=== PATIENT | female | born 1965 | race Caucasian/White ===

== ENCOUNTER → 2017-10-09 10:06 | Outpatient (CLI) | payer BC, SELFPAY ==
[2017-10-09 11:23] LABS: Absolute Basophil Count 0.04 k/cumm (0.0-0.2); Absolute Eosinophil Count 0.31 k/cumm (0.0-0.7); Absolute Monocyte Count 0.45 k/cumm (0.11-0.7); Absolute Neutrophil Count 2.69 k/cumm (1.2-6.7); Basophils % 0.7; Eosinophils % 5.8; HCT 43.5 % (36.0-46.0); HGB 14.4 g/dL (12.0-15.5); Lymphocytes % 35.3; Mean Corp. HGB Concentration 33.1 g/dL (32.0-36.0); Mean Corpuscular Hemoglobin 31.2 pg (27.0-33.0); Mean Corpuscular Volume 94.4 fL (80-95); Mean Platelet Volume 10.6 fL (8.0-11.0); Monocytes % 8.3; Neutrophils % 49.9; Platelet Count 241 x1000/uL (130-400); RBC 4.61 m/cumm (4.00-5.20); RBC Distribution Width 13.5 % (11.7-14.6); White Blood Cell Count 5.39 k/cumm (4.4-10.8)
[2017-10-09 12:16] LABS: TSH (W/Ref FT4) 2.18 uIU/mL (0.358-3.74)
[2017-10-09 16:50] LABS: Vitamin D 25 Total 41.6 ng/ml (30-100)
== END ==
PROVIDERS: PCP Internal Medicine; Visit Provider Internal Medicine
DX: D64.9 Anemia, unspecified (principal); E55.9 Vitamin D deficiency, unspecified; N94.6 Dysmenorrhea, unspecified; J45.909 Unspecified asthma, uncomplicated; R31.29 Other microscopic hematuria
CPT/HCPCS: 36415; 82306; 84443; 85025

== ENCOUNTER 2018-02-08 00:18 | Outpatient (CLI) | payer BC, SELFPAY ==
--- NOTE | 2018-02-08 11:40 | DI.MAMMO_ITS ---
SYMPTOM/DIAGNOSIS: SCREENING, Z12.31 MAMMOGRAMS: Mammograms were interpreted according to the usual protocol including computer analysis with CAD system, tomosynthesis and C view imaging. [place] made with [place] [facility] [id number]. The breasts are composed of heterogeneously dense fibroglandular tissue, breast density, Category C. No suspicious masses or suspicious microcalcifications are seen. There has been no significant change. IMPRESSION: Category 1C, negative mammogram. Yearly screening mammography is recommended. [facility] ASSESSMENT OF FINDINGS: Negative. Category 1. Patient will receive a letter notifying them of these results. Bi-RADS category C. The breasts are heterogeneously dense, which may obscure small masses.
== END 2018-02-08 00:38 ==
PROVIDERS: PCP Internal Medicine; Visit Provider Obstetrics & Gynecology Gynecology
DX: Z12.31 Encounter for screening mammogram for malignant neoplasm of breast (principal)
CPT/HCPCS: 77063; 77067

== ENCOUNTER 2018-03-17 02:24 | Outpatient (CLI) | payer BC, SELFPAY ==
[2018-03-17 13:17] LABS: TSH (W/Ref FT4) 3.68 uIU/mL (0.358-3.74)
== END 2018-03-17 02:44 ==
PROVIDERS: Obstetrics & Gynecology Gynecology; PCP Internal Medicine; Visit Provider Nurse Practitioner
DX: E03.9 Hypothyroidism, unspecified (principal)
CPT/HCPCS: 36415; 84443

== ENCOUNTER 2018-08-04 01:44 | Outpatient (CLI) | payer BC, SELFPAY ==
[2018-08-04 13:16] LABS: TSH (W/Ref FT4) 1.74 uIU/mL (0.358-3.74)
== END 2018-08-04 02:04 ==
PROVIDERS: PCP Internal Medicine; Visit Provider Obstetrics & Gynecology Gynecology
DX: N95.1 Menopausal and female climacteric states (principal)
CPT/HCPCS: 36415; 84443

== ENCOUNTER 2019-05-02 12:56 | Outpatient (REF) | payer BC, SELFPAY ==
--- NOTE | 2019-05-02 10:30 | PAPFT_PTH ---
PATIENT: Farzaneh Gutierrez LOC: [facility] U#:[id number] AGE/SX: 53/F ROOM: RE05/02/[address]: Namrata Edward NP : 1965 BED: DIS: 05/02/2019 SPEC #: [id number] RECD: 05/02/19 13:09 STATUS: MARLEN REAjit #: [id number] TESFAYE: 05/02/19 10:[address]: Namrata Edward NP DEPT: [facility] Cytology RECD BY: Anita Parra ENTERED: 05/02/19 13:10 SP TYPE: PAPFT OTHR DR: Bessie Vuong MD Tissues: 1 - CX/ENDOCX FOR PAP SMEARS Procedures: PAP THIN PREP/UVM Screening HPV DNA PROBE Comments: [id number]
== END 2019-05-02 13:16 ==
LOC: LBN 12:56
PROVIDERS: PCP Internal Medicine; Visit Provider Nurse Practitioner Women's Health
DX: Z12.4 Encounter for screening for malignant neoplasm of cervix (principal); Z11.51 Encounter for screening for human papillomavirus (HPV)
CPT/HCPCS: 88142; 87624

== ENCOUNTER 2019-06-20 13:00 | Outpatient (CLI) | payer BC, SELFPAY ==
--- NOTE | 2019-06-20 12:32 | DI.RAD_ITS ---
EXAM: XR HIP LT COMPLETE AP PELVIS CLINICAL HISTORY: Left hip/groin pain, hx of osteopenia, M25.552, R10.32 lt lower quad pain TECHNIQUE: COMPARISON: LEFT HIP COMPLETE from 02/21/2009 FINDINGS: Two views were obtained. There is man apparent bone island of the left femoral head which was presen t on prior examination of 12/11. There are slight degenerative changes of both SI joints. The cartil aginous joint spaces of the hips appear fairly well maintained. No bony or soft tissue abnormality s een. IMPRESSION: Negative examination left hip and pelvis
== END 2019-06-20 13:20 ==
PROVIDERS: PCP Nurse Practitioner; Visit Provider Nurse Practitioner Family
DX: M25.552 Pain in left hip (principal); R10.32 Left lower quadrant pain; M53.3 Sacrococcygeal disorders, not elsewhere classified
CPT/HCPCS: 73502

== ENCOUNTER 2019-06-24 15:51 | Emergency (ER) | payer BC, SELFPAY ==
[2019-06-24 15:54] VITALS: BP 138/83; PULSE 79; RESP 14; TEMP 36.9; O2SAT 100
[2019-06-24 16:17] LABS: Bilirubin Negative (Negative); Blood Moderate (Negative); Clarity Clear (Clear); Glucose Negative (Negative); Ketones Negative (Negative); Leukocyte Esterase Trace (Negative); Nitrite Negative (Negative); Specific Gravity 1.015 (1.005-1.025); Urobilinogen 0.2 EU/dL (Up TO 0.2)
[2019-06-24 16:25] LABS: Bacteria Few HPF (Negative); C & S Indicated? No; Casts Negative LPF (Negative); Crystals Negative HPF (Negative); Epithelial Cells Few HPF (Negative); Mucus Negative (Negative); Other Cells Negative (Negative); WBC 0-2 HPF (0-5)
[2019-06-24] MEDS: Normal Saline Flush 10 ML SYR IVP (16:43)
[2019-06-24 16:57] LABS: Abs Immature Grans 0.01 k/cumm (0.0-0.09); Absolute Basophil Count 0.03 k/cumm (0.0-0.2); Absolute Eosinophil Count 0.31 k/cumm (0.0-0.7); Absolute Lymphocyte Count 2.72 k/cumm (1.2-3.4); Absolute Monocyte Count 0.38 k/cumm (0.11-0.7); Absolute Neutrophil Count 2.24 k/cumm (1.2-6.7); Basophils % 0.5; Eosinophils % 5.4; HCT 42.3 % (36.0-46.0); HGB 14.2 g/dL (12.0-15.5); Immature Grans % 0.2 %; Lymphocytes % 47.8; Mean Corp. HGB Concentration 33.6 g/dL (32.0-36.0); Mean Corpuscular Hemoglobin 31.3 pg (27.0-33.0); Mean Corpuscular Volume 93.2 fL (80-95); Mean Platelet Volume 10.8 fL (8.0-11.0); Monocytes % 6.7; Neutrophils % 39.4; Platelet Count 262 x1000/uL (130-400); RBC 4.54 m/cumm (4.00-5.20); RBC Distribution Width 12.6 % (11.7-14.6); White Blood Cell Count 5.69 k/cumm (4.4-10.8)
--- NOTE | 2019-06-24 17:00 | ED.GENADUL_ITS ---
Discharge Plan Disposition Patient Disposition: HOME Condition: Stable Discharge Details Chief Complaint: Abd Prob Clinical Impression: Left groin pain, Sciatica Primary Care Provider: Bere Westbrook ED Provider: Unique De La Torre Home Meds and New Rx's Prescriptions: Continued levothyroxine 50 mcg capsule 50 mcg PO DAILY Qty: 90 RF: 0 Fish Oil 1 EACH capsule 1 ea PO DAILY RF: 0 cholecalciferol (vitamin D3) [Vitamin D3] 2,000 UNIT capsule 2,000 unit PO DAILY RF: 0 albuterol sulfate [ProAir HFA] 90 mcg/actuation HFA aerosol inhaler 1 - 2 puff Inhalation Q6H PRN PRNRF: 0 Qvar RediHaler 80 mcg/actuation HFA aerosol breath activated 1 inh IH BID PRNRF: 0 Discharge Instructions Instructions: Sciatica (ED) Additional Instructions: Take the steroids until finished. Take the muscle relaxers as needed and d irected for pain or muscle spasm. You can continue Lidoderm patches [id number] as needed and directed. Continue to alternate Tylenol and Motrin as needed and directed for pain. Apply ice to the affected area several times daily for 20 minutes at a time. Call your primary care doctor's office on Thursday to schedule a follow-up appointment for reevaluation. Return to the emergency department if you develop any worsening or new concerning symptoms. Discharge Data Discharge Date/Time-TO BE ENTERED AT DEPARTURE: 06/24/19 18:50 Discharge Physician: Unique De La Torre Medical Decision Making 54-year-old female presents with left lower quadrant with radiation to left back and buttock pain for the past 10 days. No cauda equina or symptoms. No fever or other covid symptoms. She is postmenopausal. She has tenderness to palpation of the left upper to left lower quadrants as well as left buttock localized tenderness. There is no evidence of cellulitis or trauma. She has no focal deficits and is neurovascular intact. Differential diagnosis includes acute diverticulitis, hernia, kidney stone, sciatica, groin or muscle strain. Will check screening labs, urinalysis and CT abdomen and pelvis. Patient declines any medication for pain. Labs and imaging reviewed and unremarkable. Patient states she chronically has blood in her urine. CT noted evidence of gastritis but this appears incidental. Patient reassessed and she still complaining of left groin burning. Case discussed with surgery on-call who stated that patient's radiation pain to the buttock and thigh likely consistent with musculoskeletal pain rather than GI. No indication for urgent EGD or colonoscopy. Will treat for possible sciatica with steroids and muscle relaxers. Patient had a Lidoderm patch placed here. Prescriptions for prednisone and methocarbamol called into [facility] in [place]. Advised to follow up with the primary care doctor for re-evaluation. Usual and customary return precautions given prior to discharge. Medical Records Medical records reviewed: Yes I reviewed the patient's medical records. HPI General Mode of arrival: ambulatory . Date/Time Provider Initiated Documentation: 06/24/19 16:14 . Limitations to Documentation: no limitations . Information obtained by: patient . HPI Narrative: Patient is a 54-year-old female who presents with constant burning left groin and left lower quadrant pain with radiation around to her left flank, left buttock and down to left hip and thigh for the past 10 days. Patient states the pain is worse with sitting in certain movements but better when laying flat or standing. Patient admits to some decreased appetite due to pain but otherwise has been eating normally without nausea, vomiting, diarrhea or urinary symptoms. She denies any fever, cough or shortness of breath. She states she is active with yard work and yoga but denies any known injury. She denies any relief with Tylenol or Motrin. She denies any saddle anesthesia, bowel or bladder incontinence, leg weakness or numbness. Related Data Home Medications Medication Instructions Recorded Confirmed Fish Oil 1 ea PO DAILY 06/15/17 06/24/19 cholecalciferol (vitamin D3) 2,000 unit PO DAILY 06/15/17 06/24/19 [Vitamin D3] levothyroxine 50 mcg capsule 50 mcg PO DAILY #90 cap 05/02/19 06/24/19 Qvar RediHaler 1 inh IH BID PRN 06/24/19 06/24/19 albuterol sulfate [ProAir HFA] 1 - 2 puff INHALATION Q6H PRN PRN 06/24/19 06/24/19 Previous Rx's Medication Instructions Recorded levothyroxine 50 mcg capsule 50 mcg PO DAILY #90 cap 05/02/19 Allergies Allergy/AdvReac Type Severity Reaction Status Date / Time animal dander Allergy Severe Wheezing, Unverified 06/24/19 15:59 SOB cyclobenzaprine AdvReac Severe Tremors, Unverified 06/24/19 15:59 per pt General Stated Complaint: Abd Prob JARET: 3 Review of Systems All systems reviewed & are unremarkable except as noted in HPI and below Constitutional Constitutional: Reports as per HPI, Denies chills and Denies fever(s) Eyes Eyes: Denies blurry vision ENT Ears, Nose, Mouth, and Throat: Denies dizziness, Denies sore throat and Denies throat swelling Cardiovascular Cardiovascular: Denies chest pain and Denies dyspnea Respiratory Respiratory: Denies cough and Denies dyspnea Gastrointestinal Gastrointestinal: Reports abdominal pain, Denies diarrhea and Denies vomiting Genitourinary Genitourinary: Denies hematuria and Denies dysuria Musculoskeletal Musculoskeletal: Reports back pain and Denies numbness Integumentary/Breasts Skin/Breast: Denies lesions and Denies rash Neurologic Neurologic: Denies dizziness, Denies localized weakness and Denies numbness Allergic/Immunologic Allergic/Immunologic: Denies throat swelling [facility] Medical History (Updated 06/24/19 @ 18:36 by Unique De La Torre DO) asthma Hip pain, chronic Left Hypothyroidism (Chronic) Left inguinal pain (Acute) Surgical History Cervical Conization/LEEP (Resolved) 2006 Cervical Procedure (Resolved) Cryo 1987. LEEP 2006. section 1996 H/O sinus surgery (Acute) Nasal septoplasty (12/19/15) Social History Smoking/Tobacco Use Status: Never Second Hand Exposure: No Alcohol Intake: current Alcohol Intake frequency: a few times a month Alcohol type: wine and hard liquor Details: 2-4 x month Drug use: Never Substance use type: does not use Caregiver/Support person: No Household members: spouse Housing: house Number of Children: 1 Communication Needs: None Pets and animals: No Current gender identity: female What is your relationship status?: How often do you talk on the phone with friends or family?: decline to answer How often do you get together with friends or relatives?: decline to answer How often do you attend restoration or oriental orthodox services?: decline to answer Do you belong to any clubs or organized social groups?: decline to answer Panel score (0-1 are the most socially isolated patients): 1 What type of physical activity do you participate in: weight lifting and other Details: Recumbant bike Duration: 45-60 minutes/day Karlee/Quaker: No preference Special karlee needs: No Seatbelt use: always Drive intox or ride w/intox chain saw driver: No Do you feel safe at home: Yes Do you feel safe in your relationship?: Yes Female Reproductive History Menstrual Menopause type: natural (2016) History History 1 Para Hx # Term Pregnancies 1 Multiple births Hx # Pregnancies Ectopic pregnancies AB induced Hx Number of Living Children AB spontaneous Exam Const General: cooperative, healthy appearing and no acute distress HENMT Head: normal to inspection Face and sinus: normal facial exam Eyes General: appearance normal, both eyes and all related structures EOM: EOM intact bilaterally Neck Neck: normal visual inspection and No submandibular swelling Lymphatic: no lymphadenopathy noted Chest Chest: normal inspection of the chest and no tenderness Resp Effort & Inspection: normal respiratory effort and able to speak in complete sentences Auscultation: clear to auscultation bilaterally Cardio Rate: regular rate Rhythm: regular rhythm GI Inspection: normal to inspection Palpation: soft, not firm, not rigid and tender (L mid abdomen) in the LLQ and in the LUQ Auscultation: hypoactive bowel sounds Back/Spine/Pelvis Thoracic/Lumbar Spine: thoracic and lumbar spine normal to inspection and No lumbar spinal tenderness Pelvis: no pain with anterior-posterior compression and buttock tenderness on the left Skin General skin exam: no rashes or lesions noted Neuro General: patient alert, patient awake and patient oriented x3 Cognition: normal cognition Speech: speech normal Motor: muscle tone normal throughout and strength 5/5 throughout Sensory Exam: no sensory deficits noted DTR's: Rt Patellar: 2+, Lt Patellar: 2+, Rt Ankle: 2+ and Lt Ankle: 2+ Plantar Reflexes: Equivocal: bilateral (negative babinski b/l ) Extrem General: normal to inspection, full ROM, capillary refill normal, no calf t enderness bilaterally and no edema Psych Appearance: grossly normal Mental Status: mental status grossly normal Speech and Movement: speech and movement normal Affect: normal affect Course Vital Signs Vital signs: Vital Signs Temperature 98.4 F 06/24/19 15:54 Pulse 79 06/24/19 15:54 Respiratory Rate 14 06/24/19 15:54 Blood Pressure 138/83 06/24/19 15:54 Pulse Oximetry 100 06/24/19 15:54 Temperature 98.4 F 06/24/19 15:54 Temperature Source Skin 06/24/19 15:54 Pulse 79 06/24/19 15:54 Respiratory Rate 14 06/24/19 15:54 Respiratory Effort 06/24/19 16:00 Blood Pressure 138/83 06/24/19 15:54 Blood Pressure Position Standing 06/24/19 15:54 Pulse Oximetry 100 06/24/19 15:54 Oxygen Delivery Method Room Air 06/24/19 15:54 Oxygen Flow Rate 0 06/24/19 15:54 Pain Level 5 06/24/19 15:54 Lab/Test Results Lab/Test Results: Laboratory Tests Range/Units 06/24/19 16:10 Urine Color (Yellow) Yellow Urine Clarity (Clear) Clear Urine pH (5-8) 6.0 Ur Specific [place] (1.005-1.025) 1.015 Urine Protein (Negative) mg/dL Negative Urine Ketones (Negative) mg/dL Negative Urine Blood (Negative) Moderate H Urine Nitrite (Negative) Negative Urine Bilirubin (Negative) Negative Urine Urobilinogen (Up TO 0.2) EU/dL 0.2 Ur Leukocyte Esterase (Negative) Trace H Urine RBC (0-2) HPF 5-10 H Urine WBC (0-5) HPF 0-2 Ur Epithelial Cells (Negative) HPF Few Urine Crystals (Negative) HPF Negative Urine Bacteria (Negative) HPF Few Urine Casts (Negative) LPF Negative Urine Mucus (Negative) Negative Urine Other (Negative) Negative Ur Culture Indicated? No Urine Glucose (Negative) mg/dL Negative
[2019-06-24 17:09] LABS: ALT 25 U/L (14-59); AST 33 U/L (15-37); Albumin 4.2 g/dL (3.4-5.0); Alkaline Phosphatase 81 U/L (46-116); Anion Gap 7.1 mmol/L (3-11); BUN 15 mg/dL (7-18); Bilirubin, Total 0.4 mg/dL (0.2-1.0); CO2 28.9 mmol/L (21.0-32.0); CREATININE 0.77 mg/dL (0.55-1.02); Calcium 9.4 mg/dL (8.5-10.1); Chloride 102 mmol/L (98-107); Glucose 100 mg/dL (74-106); Lipase 252 U/L (73-393); Potassium 3.9 mmol/L (3.5-5.1); Sodium 138 mmol/L (136-145)
--- NOTE | 2019-06-24 17:15 | DI.CT_ITS ---
EXAM: CT ABDOMEN PELVIS W CLINICAL HISTORY: LLQ abd pain, r/o diverticulitis. TECHNIQUE: Imaging Protocol: Axial computed tomography images with coronal and sagittal reformatted images were created and reviewed CONTRAST MATERIAL: Intravenous: Omnipaque 350 Contrast volume:80 ml Oral: no COMPARISON: ABD PELVIS WITH CONTRAST from 09/23/2012 FINDINGS: ABDOMEN: Lung Bases: Normal where visualized. Liver: Normal density. Multiple small cysts are again noted.. Gallbladder and biliary tract: No radiodense calculus or dilation. Pancreas: Normal density, no abnormal calcifications or inflammatory process. Spleen: Normal. Kidneys: Normal size, contour and axis. No radiodense stones or obstructive uropathy. No masses seen. Adrenal glands: No masses seen. Abdominal Aorta: Abdominal portion non-dilated. PELVIS: Bladder: Symmetric distention, no gross wall thickening. Bowel: There is a question of gastric wall thickening. This stomach is not well evaluated since it i s nondistended. No obstruction or bowel wall thickening. There is no evidence of diverticulitis. Peritoneal cavity: No ascites, collection or mesenteric inflammatory response. Bones: Within normal limits. Reproductive organs: Within normal limits. Lymph nodes: Unremarkable. Impression: No evidence of diverticulitis. Questionable wall thickening of the stomach versus under distention. Clinical correlation is recommended.. RADIATION DOSE DELIVERED: Total DLP DATA REPOSITORY: All CT scans at this facility are submitted to the National Radiology Data Registry (NRDR) Dose Index Registry (DIR) with the [employer] (ACR). RADIATION OPTIMIZATION: All CT scans at this facility use at least one of these dose optimization te chniques: automated exposure control; mA and/or kV adjustment per patient size (includes targeted exa ms where dose is matched to clinical indication); or iterative reconstruction.
[2019-06-24] MEDS: Omnipaque 350 MG/ML 100 ML BTL IJ (17:32)
[2019-06-24] MEDS: Normal Saline - Diluent 50 ML VIAL IV (17:33)
[2019-06-24] MEDS: Normal Saline 1,000 ML 1000 ML IV (17:45)
--- NOTE | 2019-06-24 17:58 | DI.VRAD_ITS ---
PROCEDURE INFORMATION: Exam: CT Abdomen And Pelvis With Contrast Exam date and time: 06/24/2019 5:25 PM Age: 54 years old Clinical indication: Other: Llq pain, rule out diverticulitis; Prior surgery; Surgery date: 6+ months; Surgery type: section \T\ hernia repair. TECHNIQUE: Imaging protocol: Computed tomography of the abdomen and pelvis with intravenous contrast. Radiation optimization: All CT scans at this facility use at least one of these dose optimization techniques: automated exposure control; mA and/or kV adjustment per patient size (includes targeted exams where dose is matched to clinical indication); or iterative reconstruction. Contrast material: OMNIPAQUE 350; Contrast volume: 80 ml; Contrast route: IV; COMPARISON: CT ABD PELVIS WITH CONTRAST 09/23/2012 10:19 AM FINDINGS: Liver: Multiple simple appearing cysts throughout the liver larger than previous, up to 15 mm. Gallbladder and bile ducts: Normal. No calcified stones. No ductal dilation. Pancreas: Normal. No ductal dilation. Spleen: Normal. No splenomegaly. Adrenals: Normal. No mass. Kidneys and ureters: Simple cyst right kidney. No hydronephrosis. Stomach and bowel: Diffuse wall thickening of the stomach suggestive of a nonspecific gastritis, versus artifact related to underdistention. Correlate clinically. Appendix: No evidence of appendicitis. Intraperitoneal space: Unremarkable. No free air. No significant fluid collection. Vasculature: Unremarkable. No abdominal aortic aneurysm. Lymph nodes: Unremarkable. No enlarged lymph nodes. Bladder: Unremarkable as visualized. Reproductive: Unremarkable as visualized. Bones/joints: Unremarkable. No acute fracture. Soft tissues: Unremarkable. IMPRESSION: Diffuse wall thickening of the stomach suggestive of a nonspecific gastritis, versus artifact related to underdistention. Correlate clinically. Dictated and Authenticated by: Martir Aguirre MD. Ordering:RIDGE Calhoun MD
[2019-06-24] MEDS: Lidocaine 5% Patch 1 PATCH TP (18:46)
[2019-06-24] MEDS: predniSONE 20 MG TAB 60 MG PO (18:46)
== END 2019-06-24 18:50 | disposition home or self-care (01) ==
PROVIDERS: Emergency Provider Physician Assistant; PCP Nurse Practitioner
DX: R10.32 Left lower quadrant pain (principal); M54.32 Sciatica, left side
CPT/HCPCS: 36415; 80053; 83690; 96360; 99285; 74177; 81003; 81015; 85025; J3490; J7512

== ENCOUNTER 2019-08-02 01:42 | Outpatient (CLI) | payer BC, SELFPAY ==
--- NOTE | 2019-08-02 12:30 | DI.MAMMO_ITS ---
EXAM: MG MAMMO SCREENING CLINICAL HISTORY: screening TECHNIQUE: Bilateral full field digital CC and MLO mammographic images were obtained with 3D tomosyn thesis and utilizing computer aided detection (CAD). COMPARISON: Available for comparison. FINDINGS: Masses/Architectural Distortion: None seen. Microcalcifications: No suspicious pleomorphic-type are seen. Skin Thickening/Nipple Retraction: None. IMPRESSION: 1. No significant interval change with no specific features of malignancy noted. 2. Unless there is more urgent need, screening mammography is recommended, as per [employer] guidelines. BI-RADS Category 1 - Negative Breast Density - Category C - Heterogeneously dense The mammogram demonstrates the patient's breast tissue is dense. Dense breast tissue is very common a nd is not abnormal but dense breast tissue can make it harder to find cancer on a mammogram. Also, de nse breast tissue may increase their breast cancer risk. This information about the result of the [facility] mogram report was provided to the patient to raise their awareness. Use this report when you speak wi th the patient about their risks for breast cancer, which includes their family history. At that time , you may recommend for more screening tests (Ultrasound or MRI) as they might be useful based on the ir risk. A negative radiographic report should not delay biopsy if a dominant or clinically suspicious mass is present. Up to ten percent of cancers are not identified on mammography. A negative report may reinforce clinical impression. Adenosis and dense breasts may obscure an underlying neoplasm. False positive reports average 6 to 10%. Patient will receive a letter notifying them of these results.
== END 2019-08-02 02:02 ==
PROVIDERS: PCP Nurse Practitioner; Visit Provider Nurse Practitioner Women's Health
DX: Z12.31 Encounter for screening mammogram for malignant neoplasm of breast (principal)
CPT/HCPCS: 77063; 77067

== ENCOUNTER 2019-08-02 03:30 | Outpatient (CLI) | payer BC, SELFPAY ==
[2019-08-02 13:47] LABS: Hemoglobin A1C 5.4 % (3.8-5.6)
[2019-08-02 13:54] LABS: Absolute Basophil Count 0.03 k/cumm (0.0-0.2); Absolute Eosinophil Count 0.14 k/cumm (0.0-0.7); Absolute Lymphocyte Count 2.04 k/cumm (1.2-3.4); Absolute Monocyte Count 0.32 k/cumm (0.11-0.7); Absolute Neutrophil Count 2.14 k/cumm (1.2-6.7); Basophils % 0.6; HCT 42.8 % (36.0-46.0); HGB 14.1 g/dL (12.0-15.5); Lymphocytes % 43.7; Mean Corp. HGB Concentration 32.9 g/dL (32.0-36.0); Mean Corpuscular Hemoglobin 31.2 pg (27.0-33.0); Mean Corpuscular Volume 94.7 fL (80-95); Mean Platelet Volume 10.9 fL (8.0-11.0); Monocytes % 6.9; Neutrophils % 45.8; Platelet Count 262 x1000/uL (130-400); RBC 4.52 m/cumm (4.00-5.20); RBC Distribution Width 13.8 % (11.7-14.6); White Blood Cell Count 4.67 k/cumm (4.4-10.8)
[2019-08-02 14:38] LABS: TSH (W/Ref FT4) 0.64 uIU/mL (0.36-3.74)
== END 2019-08-02 03:50 ==
PROVIDERS: PCP Nurse Practitioner; Visit Provider Nurse Practitioner Women's Health
DX: E03.9 Hypothyroidism, unspecified (principal); R73.09 Other abnormal glucose
CPT/HCPCS: 36415; 83036; 84443; 85025

== ENCOUNTER 2019-11-18 18:13 | Emergency (ER) | payer BC, SELFPAY ==
[2019-11-18 18:23] VITALS: BP 132/95; PULSE 94; RESP 20; TEMP 37.1; O2SAT 98
--- NOTE | 2019-11-18 18:27 | DI.CT_ITS ---
EXAM: CT CHEST/ABD/PEL W CLINICAL HISTORY: trauma to anterior chest wall. TECHNIQUE: Imaging Protocol: Axial computed tomography images with coronal and sagittal reformatted images were created and reviewed CONTRAST MATERIAL: Intravenous: Omnipaque 350 Contrast volume:100 ml Oral: / no COMPARISON: CT CT ABDOMEN PELVIS W from 06/24/2019 FINDINGS: CHEST: Mediastinum and Viktoria: No dominant adenopathy or fluid collection. Pulmonary parenchyma: Minimal right middle lobe atelectasis Pleura: No effusion or pneumothorax. Lymph nodes: Within normal limits. Aorta: Thoracic portion non-dilated. Heart: Normal size. No pericardial effusion Bones: Nondisplaced sternal fracture with a small amount of surrounding hematoma. No rib fracture or spinal fracture is seen. ABDOMEN: Liver: Normal density. Stable cysts Gallbladder and biliary tract: No radiodense calculus or dilation. Pancreas: Normal density, no abnormal calcifications or inflammatory process. Spleen: Normal. Kidneys: Normal size, contour and axis. No radiodense stones or obstructive uropathy. No masses seen. Adrenal glands: No masses seen. Aorta: Abdominal portion non-dilated. Lymph nodes: Within normal limits. PELVIS: Bladder: Symmetric distention, no gross wall thickening. Bowel: No obstruction or bowel wall thickening. Peritoneal cavity: No ascites, collection or mesenteric inflammatory response. Bones: Within normal limits. Reproductive organs: Within normal limits. IMPRESSION: Nondisplaced sternal fracture with small amount of surrounding hematoma. No pneumothorax. RADIATION DOSE DELIVERED: 1,000mGy.cm Total DLP DATA REPOSITORY: All CT scans at this facility are submitted to the National Radiology Data Registry (NRDR) Dose Index Registry (DIR) with the [employer] (ACR). RADIATION OPTIMIZATION: All CT scans at this facility use at least one of these dose optimization te chniques: automated exposure control; mA and/or kV adjustment per patient size (includes targeted exa ms where dose is matched to clinical indication); or iterative reconstruction.
[2019-11-18 18:48] LABS: Abs Immature Grans 0.03 10^3/uL (0.0-0.06); Absolute Basophil Count 0.05 10^3/uL (0.0-0.2); Absolute Eosinophil Count 0.32 10^3/uL (0.0-0.7); Absolute Lymphocyte Count 2.38 10^3/uL (1.2-3.4); Absolute Monocyte Count 0.56 10^3/uL (0.1-0.8); Absolute Neutrophil Count 3.55 10^3/uL (1.2-6.7); Basophils % 0.7; Eosinophils % 4.6; HCT 44.2 % (36.0-46.0); HGB 14.7 g/dL (11.2-15.7); Immature Grans % 0.4; Lymphocytes % 34.5; MCH 31.1 pg (27.0-33.0); MCHC 33.3 % (32.0-36.0); MCV 93.4 fL (80-95); Monocytes % 8.1; Neutrophils % 51.7; Nucleated RBC 0 %; Platelet Count 250 10^3/uL (130-400); RBC 4.73 10^6/uL (3.93-5.22); RDW 11.9 % (11.7-14.6); RDW-SD 41.4 fL; WBC 6.89 10^3/uL (4.4-10.8)
[2019-11-18] MEDS: Ondansetron 4 MG/2 ML VIAL IVP ×2 (18:50→20:53)
[2019-11-18 18:57] VITALS: BP 130/83; PULSE 77; RESP 18; O2SAT 99
--- NOTE | 2019-11-18 18:57 | W.ED.GENAD ---
Discharge Plan Disposition Patient Disposition: [facility] Condition: Fair Discharge Details Clinical Impression: Sternal fracture Primary Care Provider: Bere Westbrook ED Provider: Rhonda Ayala Home Meds and New Rx's Prescriptions: New ondansetron HCl (PF) 4 mg/2 mL Solution 4 mg IVP Q4H PRN PRNQty: 0 RF: 0 morphine 4 mg/mL Solution 4 mg IVP Q2H PRN PRNQty: 0 RF: 0 Continued Fish Oil 1 EACH capsule 1 ea PO DAILY RF: 0 cholecalciferol (vitamin D3) [Vitamin D3] 2,000 UNIT capsule 2,000 unit PO DAILY RF: 0 levothyroxine 50 mcg capsule 50 mcg PO DAILY Qty: 90 RF: 3 albuterol sulfate [ProAir HFA] 90 mcg/actuation HFA aerosol inhaler 1 - 2 puff Inhalation Q6H PRN PRNRF: 0 Qvar RediHaler 80 mcg/actuation HFA aerosol breath activated 1 inh IH BID PRNRF: 0 Medical Decision Making Right upper abdominal-chest wall trauma. Will obtain routine labs including CMP CBC lipase and chest abdomen pelvic CT scan, IV established given Zofran 4 mg and morphine 4 mg IV push. labs reviewed and unremarkable. CT shows minimal angulated fracture with inferior's sternum with a small retrosternal hemorrhage no evidence of underlying vascular injury. Volume loss and band-. like atelectasis or consolidation within the right middle lobe likely posttraumatic. CT reviewed with Dr Bustamante, trauma at [facility], who accepts patient in transfer, she is accepted in transfer to ED for evaluation and further management. she will be transported by [facility] ground ems. Medical Records Medical records reviewed: Yes I reviewed the patient's medical records. Lab Data Lab results reviewed: Yes I reviewed the patient's lab results. Lab results narrative: Laboratory Tests Range/Units 11/18/19 11/18/19 18:40 18:40 WBC (4.4-10.8) 10^3/uL 6.89 RBC (3.93-5.22) 10^6/uL 4.73 Hgb (11.2-15.7) g/dL 14.7 Hct (36.0-46.0) % 44.2 MCV (80-95) fL 93.4 MCH (27.0-33.0) pg 31.1 MCHC (32.0-36.0) % 33.3 RDW (11.7-14.6) % 11.9 Plt Count (130-400) 10^3/uL 250 MPV (8.0-11.0) fL 11.0 Immature Gran % 0.4 Neutrophils % 51.7 Lymphocytes % 34.5 Monocytes % 8.1 Eosinophils % 4.6 Basophils % 0.7 Nucleated RBC % % 0 Absolute Neutrophils (1.2-6.7) 10^3/uL 3.55 Absolute Lymphocytes (1.2-3.4) 10^3/uL 2.38 Absolute Monocytes (0.1-0.8) 10^3/uL 0.56 Absolute Eosinophils (0.0-0.7) 10^3/uL 0.32 Absolute Basophils (0.0-0.2) 10^3/uL 0.05 Sodium (136-145) mmol/L 137 Potassium (3.5-5.1) mmol/L 4.4 Chloride (98-107) mmol/L 101 Carbon Dioxide (21.0-32.0) mmol/L 27.5 Anion Gap (3-11) mmol/L 8.5 BUN (7-18) mg/dL 27 H Creatinine (0.55-1.02) mg/dL 0.93 Estimated GFR/1.73 m2 (mL/min/1.73m2) >= 60.00 Glucose (74-106) mg/dL 103 Calcium (8.5-10.1) mg/dL 9.4 Total Bilirubin (0.2-1.0) mg/dL 0.3 AST (15-37) U/L 38 H ALT (14-59) U/L 31 Alkaline Phosphatase (46-116) U/L 97 Total Protein (6.4-8.2) g/dL 8.0 Albumin (3.4-5.0) g/dL 4.2 Lipase (73-393) U/L 375 HPI General Mode of arrival: ambulatory. Date/Time Provider Initiated Documentation: 11/18/19 18:14. Limitations to Documentation: no limitations. Information obtained by: patient. HPI Narrative: Traumatic blow to the right upper quadrant after falling from a chair she was standing on and landing on the back of the chair. She is reporting severe right-sided upper abdominal/rib pain just under her right breast. She has no shortness of breath or respiratory symptoms but states she cannot take a deep breath secondary to the pain. There is no obvious injuries rashes trauma hematomas noted. She has no other injuries from the fall. Related Data Home Medications Medication Instructions Recorded Confirmed Fish Oil 1 ea PO DAILY 06/15/17 11/18/19 cholecalciferol (vitamin D3) 2,000 unit PO DAILY 06/15/17 11/18/19 [Vitamin D3] Qvar RediHaler 1 inh IH BID PRN 06/24/19 11/18/19 albuterol sulfate [ProAir HFA] 1 - 2 puff INHALATION Q6H PRN PRN 06/24/19 11/18/19 levothyroxine 50 mcg capsule 50 mcg PO DAILY #90 cap 08/19/19 11/18/19 morphine 4 mg IVP Q2H PRN PRN #0 ml 11/18/19 ondansetron HCl (PF) 4 mg IVP Q4H PRN PRN #0 ml 11/18/19 Previous Rx's Medication Instructions Recorded levothyroxine 50 mcg capsule 50 mcg PO DAILY #90 cap 08/19/19 morphine 4 mg IVP Q2H PRN PRN #0 ml 11/18/19 ondansetron HCl (PF) 4 mg IVP Q4H PRN PRN #0 ml 11/18/19 Allergies Allergy/AdvReac Type Severity Reaction Status Date / Time animal dander Allergy Severe Wheezing, Unverified 11/18/19 18:32 SOB ampicillin Allergy Unverified 11/18/19 18:32 cyclobenzaprine AdvReac Severe Tremors, Unverified 11/18/19 18:32 per pt General Stated Complaint: Chest/Rib JARET: 3 Review of Systems All systems reviewed & are unremarkable except as noted in HPI and below ENT Ears, Nose, Mouth, and Throat: Denies vertigo, Denies dizziness and Denies neck pain Cardiovascular Cardiovascular: Denies syncope and Denies dyspnea Respiratory Respiratory: Denies cough, Reports pain on inspiration, Reports pain with cough and Denies dyspnea Gastrointestinal Gastrointestinal: Reports nausea and Denies vomiting Musculoskeletal Musculoskeletal: Denies arthralgias, Denies limited range of motion and Denies neck pain Integumentary/Breasts Skin/Breast: Denies lesions, Denies rash and Denies wounds Neurologic Neurologic: Denies vertigo, Denies dizziness and Denies syncope ON LICENSE OF [facility] Medical History (Updated 11/18/19 @ 20:55 by Rhonda Ayala NP) asthma Hip pain, chronic Left Hypothyroidism Left inguinal pain Unspecified lesions of oral mucosa This is a hard mass and appears to be a torrus. confirmed by dentist Surgical History (Updated 08/02/19 @ 10:43 by Bere Westbrook NP) Cervical Conization/LEEP 2006 Cervical Procedure Cryo 1987. LEEP 2006. section 1996 Nasal septoplasty (12/19/15) Status post LEEP (loop electrosurgical excision procedure) of cervix Family History (Updated 08/05/19 @ 09:18 by Tomas Adorno) Mother , age71 Diabetes Type II Mantle cell lymphoma Hypertension Depression Father , 71 Alcohol abuse Melanoma Throat cancer Sister Clotting disorder Gordo's thyroiditis Maternal Grandmother Uterine cancer Sister No problems noted. Daughter No problems noted. Social History (Updated 08/05/19 @ 09:17 by Tomas Adorno) Smoking/Tobacco Use Status: Never Second Hand Exposure: No Alcohol Intake: current Alcohol Intake frequency: a few times a month Alcohol type: wine and hard liquor Details: 2-4 x month Drug use: Never Substance use type: does not use Caregiver/Support person: No Household members: spouse Housing: house Number of Children: 1 Communication Needs: None Pets and animals: No Do you think of yourself as: straight/heterosexual Current gender identity: female What is your relationship status?: How often do you talk on the phone with friends or family?: decline to answer How often do you get together with friends or relatives?: decline to answer How often do you attend rastafarian or moravian services?: decline to answer Do you belong to any clubs or organized social groups?: decline to answer Panel score (0-1 are the most socially isolated patients): 1 Duration: 45-60 minutes/day Frequency: 5-6 times per week Karlee/Orthodoxy: No preference Special karlee needs: No Seatbelt use: always Drive intox or ride w/intox coach driver: No Do you feel safe at home: Yes Do you feel safe in your relationship?: Yes Female Reproductive History Menstrual Menopause type: natural (2015) History History 1 Para Hx # Term Pregnancies 1 Multiple births Hx # Pregnancies Ectopic pregnancies AB induced Hx Number of Living Children AB spontaneous Exam Const General: cooperative, healthy appearing, comfortable and no acute distress Nutritional Appearance: average body habitus Orientation: alert, awake and oriented x3 HENMT Head: normal to inspection, normocephalic and atraumatic Mouth: oral mucosae normal Resp Effort & Inspection: normal respiratory effort and not labored Auscultation: clear to auscultation bilaterally and breath sounds present Cardio Rate: regular rate Rhythm: regular rhythm GI Inspection: normal to inspection Palpation: soft Auscultation: normal bowel sounds Skin General skin exam: no rashes or lesions noted Neuro General: patient alert, patient awake and patient oriented x3 Cognition: normal cognition Speech: speech normal Gait: normal gait Extrem General: normal to inspection and full ROM Course Vital Signs Vital signs: Vital Signs Temperature 37.1 C 11/18/19 18:23 Pulse 94 H 11/18/19 18:23 Respiratory Rate 20 11/18/19 18:23 Blood Pressure 132/95 H 11/18/19 18:23 Pulse Oximetry 98 11/18/19 18:23 Temperature 37.1 C 11/18/19 18:23 Temperature Source Temporal Artery Scan 11/18/19 18:23 Pulse 94 H 11/18/19 18:23 Respiratory Rate 20 11/18/19 18:23 Respiratory Effort Non-Labored 11/18/19 18:29 Blood Pressure 132/95 H 11/18/19 18:23 Blood Pressure Position Sitting 11/18/19 18:23 Pulse Oximetry 98 11/18/19 18:23 Oxygen Delivery Method Room Air 11/18/19 18:23 Oxygen Flow Rate 0 11/18/19 18:23 Lab/Test Results Lab/Test Results: Laboratory Tests Range/Units 11/18/19 18:40 WBC (4.4-10.8) 10^3/uL 6.89 RBC (3.93-5.22) 10^6/uL 4.73 Hgb (11.2-15.7) g/dL 14.7 Hct (36.0-46.0) % 44.2 MCV (80-95) fL 93.4 MCH (27.0-33.0) pg 31.1 MCHC (32.0-36.0) % 33.3 RDW (11.7-14.6) % 11.9 Plt Count (130-400) 10^3/uL 250 MPV (8.0-11.0) fL 11.0 Immature Gran % 0.4 Neutrophils % 51.7 Lymphocytes % 34.5 Monocytes % 8.1 Eosinophils % 4.6 Basophils % 0.7 Nucleated RBC % % 0 Absolute Neutrophils (1.2-6.7) 10^3/uL 3.55 Absolute Lymphocytes (1.2-3.4) 10^3/uL 2.38 Absolute Monocytes (0.1-0.8) 10^3/uL 0.56 Absolute Eosinophils (0.0-0.7) 10^3/uL 0.32 Absolute Basophils (0.0-0.2) 10^3/uL 0.05
[2019-11-18 19:02] LABS: ALT 31 U/L (14-59); AST 38 U/L (15-37); Albumin 4.2 g/dL (3.4-5.0); Alkaline Phosphatase 97 U/L (46-116); Anion Gap 8.5 mmol/L (3-11); BUN 27 mg/dL (7-18); Bilirubin, Total 0.3 mg/dL (0.2-1.0); CO2 27.5 mmol/L (21.0-32.0); CREATININE 0.93 mg/dL (0.55-1.02); Calcium 9.4 mg/dL (8.5-10.1); Chloride 101 mmol/L (98-107); Glucose 103 mg/dL (74-106); Lipase 375 U/L (73-393); Potassium 4.4 mmol/L (3.5-5.1); Sodium 137 mmol/L (136-145)
[2019-11-18] MEDS: Normal Saline Flush 10 ML SYR IVP (19:20)
[2019-11-18] MEDS: Omnipaque 350 MG/ML 100 ML BTL IJ (19:24)
[2019-11-18] MEDS: Normal Saline - Diluent 50 ML VIAL IV (19:25)
--- NOTE | 2019-11-18 19:53 | DI.VRAD_ITS ---
PROCEDURE INFORMATION: Exam: CT Chest With Contrast Exam date and time: 11/18/2019 6:45 PM Age: 54 years old Clinical indication: Other: Trauma, back of chair under anterior chest wall TECHNIQUE: Imaging protocol: Computed tomography of the chest with intravenous contrast. Contrast material: OMNIPAQUE 350; Contrast volume: 100 ml; Contrast route: INTRAVENOUS (IV); COMPARISON: CT ABDOMEN PELVIS W 06/24/2019 5:32 PM FINDINGS: Lungs: Volume loss with bandlike consolidation, or scarring is seen within the right middle lobe predominantly involving the medial segment. This may be posttraumatic. The lungs are otherwise clear. Pleural space: No pleural effusion or pneumothorax. Heart: The heart is normal in size. No pericardial effusion. Pulmonary arteries: The central pulmonary arteries opacify normally with contrast. Aorta: The thoracic aorta is normal in caliber without aneurysm or dissection. Lymph nodes: Unremarkable. No enlarged lymph nodes. Bones/joints: A mildly angulated fracture is seen within the inferior sternum. This is best seen on sagittal image 56, series 6. A small amount of retrosternal hemorrhage is seen deep to the fracture. This extends along the anterior heart border without cord compression or displacement of the heart. No compression fracture within the thoracic spine. Soft tissues: Unremarkable. Other findings: No centrally obstructing mass. IMPRESSION: 1. Minimally angulated fracture within the inferior sternum with small retrosternal hemorrhage. No evidence for underlying vascular injury. 2. Volume loss, with bandlike atelectasis or consolidation within the right middle lobe, which may be posttraumatic. No definitive centrally obstructing mass is seen. A follow-up chest CT study in 3 months should be performed to ensure stability. PROCEDURE INFORMATION: Exam: CT Abdomen And Pelvis With Contrast Exam date and time: 11/18/2019 6:45 PM Age: 54 years old Clinical indication: Other: Trauma, back of chair under anterior chest wall TECHNIQUE: Imaging protocol: Computed tomography of the abdomen and pelvis with intravenous contrast. Radiation optimization: All CT scans at this facility use at least one of these dose optimization techniques: automated exposure control; mA and/or kV adjustment per patient size (includes targeted exams where dose is matched to clinical indication); or iterative reconstruction. Contrast material: OMNIPAQUE 350; Contrast volume: 100 ml; Contrast route: INTRAVENOUS (IV); COMPARISON: CT ABDOMEN PELVIS W 06/24/2019 5:32 PM FINDINGS: Mediastinal space: Wall thickening is seen within the lower esophagus. Mild wall thickening is also seen throughout the stomach and proximal duodenum. The distal small bowel is fluid-filled and slightly distended. A moderate amount of stool is seen within the right colon. No bowel obstruction. Liver: Multiple low-density lesions are seen throughout the left and right hepatic lobes, measuring between 5 and 15 mm each. These are unchanged from the prior study and are most consistent with cysts. The portal hepatic veins opacify normally with contrast. Gallbladder and bile ducts: The gallbladder is normal appearance. No bile duct dilatation. Pancreas: Normal. No ductal dilation. Spleen: The spleen is normal appearance. Adrenals: The bilateral adrenal glands are normal appearance. Kidneys and ureters: A 6 mm low-density lesion is again seen along the inferior pole of the right kidney, most consistent with a cyst. The bilateral kidneys are otherwise normal appearance. No hydronephrosis. Stomach and bowel: See Mediastinal space finding. Appendix: No evidence of appendicitis. Intraperitoneal space: Unremarkable. No free air. No significant fluid collection. Vasculature: Unremarkable. No abdominal aortic aneurysm. Lymph nodes: Unremarkable. No enlarged lymph nodes. Urinary bladder: The urinary bladder is normal appearance. Reproductive: Unremarkable as visualized. Bones/joints: No evidence for acute fracture within the lumbar spine and pelvis. Soft tissues: Unremarkable. IMPRESSION: 1. No evidence for acute traumatic process within the abdomen and pelvis. 2. Esophagitis and gastroduodenitis, unchanged. No bowel obstruction. 3. Hepatic and renal cysts, unchanged. Dictated and Authenticated by: Meg Martínez MD. Ordering:SUKUMAR Ellis MD
--- NOTE | 2019-11-18 20:00 | RT.EKG_ITS ---
APPROVED REPORT Exam: Resting ECG Patient Location: E HR:65 bpm ECG Measurements Heart Rate 65 AXIS AL 156 P 50 QRSd 90 QRS 20 QT 409 T 39 QTc 425 Conclusion Sinus rhythm...normal P axis, V-rate 60- 99, no STEMI, minimal J point/repolarization in V2
[2019-11-18 20:11] VITALS: BP 124/85; PULSE 70; RESP 18; O2SAT 97
[2019-11-18 20:59] VITALS: BP 136/65; PULSE 76; RESP 16; O2SAT 97
== END 2019-11-18 21:25 | disposition short-term general hospital (02) ==
PROVIDERS: Emergency Provider Nurse Practitioner Acute Care; PCP Nurse Practitioner
DX: S22.24XA Fracture of xiphoid process, initial encounter for closed fracture (principal); W07.XXXA Fall from chair, initial encounter; R91.8 Other nonspecific abnormal finding of lung field
CPT/HCPCS: 36415; 74177; 80053; 83690; 86900; 86901; 93005; 96374; 96375; 96376; 99285; 71260; 85025; 93010; J2405; J3490

== ENCOUNTER 2019-12-01 10:45 | Outpatient (CLI) | payer BC, SELFPAY ==
--- NOTE | 2019-12-01 15:52 | DI.RAD_ITS ---
EXAM: XR CHEST 2V PA LATERAL CLINICAL HISTORY: re assess lungs s/p fracture, sternal fracture, S22.20XA TECHNIQUE: COMPARISON: CT CT CHEST/ABD/PEL W from 11/18/2019 FINDINGS: PA and lateral chest and three views of the sternum were obtained. No visible sternal fracture at th is time, minimal deformity may be present unchanged from CT of 11/18/2019 mild right middle lobe atel ectasis and/or scarring. No pleural effusion. No significant volume loss. Lungs are otherwise elissa r. IMPRESSION: Mild right middle lobe atelectasis and/or scarring in patient who is approximately 2 weeks status pos t sternal fracture. RADIATION DOSE DELIVERED: Total DLP
--- NOTE | 2019-12-08 16:03 | DI.VRAD_ITS ---
PROCEDURE INFORMATION: Exam: XR Chest, 2 Views Exam date and time: 12/01/2019 4:03 PM Age: 54 years old Clinical indication: Other: Re assess lungs S/P fracture, sternal fracture TECHNIQUE: Imaging protocol: XR of the chest Views: 2 views. COMPARISON: CT CHEST/ABD/PEL W 11/18/2019 7:02 PM FINDINGS: Lungs: Right middle lobe subsegmental atelectasis versus scarring. The lungs are normally expanded and otherwise clear. Pleural space: Normal. Heart/Mediastinum: Normal heart and cardiomediastinal silhouette. Vasculature: Normal pulmonary vessel caliber. Normal aorta. Bones/joints: The bones are intact. IMPRESSION: Right middle lobe atelectasis versus scarring or combination. Given the history of sternal fracture this may represent chronic atelectasis secondary to respiratory splinting. Dictated and Authenticated by: Giovanni Zapien MD. Ordering:GONZALES Blakcburn MD
--- NOTE | 2019-12-08 16:03 | DI.VRAD_ITS ---
PROCEDURE INFORMATION: Exam: XR Sternum Exam date and time: 12/01/2019 4:04 PM Age: 54 years old Clinical indication: Other: F/u FX, sternal fracture 2 weeks ago. TECHNIQUE: Imaging protocol: XR sternum. Views: 2 or more views. COMPARISON: CT CHEST/ABD/PEL W 11/18/2019 7:02 PM FINDINGS: Bones/joints: No new nondisplaced fracture of the lower sternum is seen only as and evidence of inter margin cortical sclerosis. There is no visible fracture lucency or sternal malalignment. All other bones are normal. Lungs: Band like opacification right middle lobe, probably atelectasis. Soft tissues: Normal. IMPRESSION: Right middle lobe atelectasis and sclerosis in the region of known fracture, otherwise, not detectable. Dictated and Authenticated by: Giovanni Zapien MD. Ordering:GONZALES Blackburn MD
== END 2019-12-01 11:05 ==
PROVIDERS: PCP Nurse Practitioner; Visit Provider Nurse Practitioner
DX: J98.11 Atelectasis (principal); S22.20XA Unspecified fracture of sternum, initial encounter for closed fracture
CPT/HCPCS: 71046; 71120

== ENCOUNTER 2020-08-16 03:57 | Outpatient (CLI) | payer BC, SELFPAY ==
[2020-08-16 13:12] LABS: TSH 1.12 uIU/mL (0.36-3.74)
== END 2020-08-16 03:58 | disposition home or self-care (01) ==
LOC: LBO 03:57
PROVIDERS: PCP Nurse Practitioner; Visit Provider Nurse Practitioner
DX: E03.9 Hypothyroidism, unspecified (principal)
CPT/HCPCS: 36415; 84443

== ENCOUNTER 2020-10-08 02:10 | Outpatient (CLI) | payer BC, SELFPAY ==
--- NOTE | 2020-10-08 07:30 | DI.MAMMO_ITS ---
Exam(s) MAMMO SCREENING EXAM: MAMMO SCREENING CLINICAL HISTORY: screening,Z12.39. TECHNIQUE: Bilateral full field digital CC and MLO mammographic images were obtained with 3D tomosyn thesis and utilizing computer aided detection (CAD). COMPARISON: Prior mammograms dating back to 2012, the most recent being July 2019. FINDINGS: There are no new obvious spiculated masses nor malignant appearing microcalcification groups. Benign micro and macrocalcifications are again noted in both breast. There is no significant architectural distortion nor skin thickening-retraction. IMPRESSION: No radiographic evidence of malignancy. BI-RADS Category 1 - Negative Breast Density - Category C - Heterogeneously dense Breast density Category C or D implies that the patient has dense breast tissue. Dense breast tissue can make it harder to find cancer on a mammogram. Dense breast tissue is also associated with an incr eased risk of breast cancer. This information about the result of the mammogram report was provided to the patient to raise their awareness. Use this report when you speak with the patient about their risks for breast cancer, which includes their family history. At that time, you may recommend additional screening tests (Ultrasoun d or MRI) as these tests may add significant information. A negative radiographic report should not delay biopsy if a dominant or clinically suspicious mass is present. Up to ten percent of cancers are not identified on mammography. A negative report may reinforce clinical impression. Adenosis and dense breasts may obscure an underlying neoplasm. False positive reports average 6 to 10%. Patient will receive a letter notifying them of these results.
== END 2020-10-08 02:30 ==
PROVIDERS: PCP Nurse Practitioner; Visit Provider Nurse Practitioner
DX: Z12.31 Encounter for screening mammogram for malignant neoplasm of breast (principal)
CPT/HCPCS: 77063; 77067

== ENCOUNTER 2021-04-24 01:22 | Outpatient (CLI) | payer BC, SELFPAY ==
[2021-04-24 12:13] LABS: Source Nasal/Nares
[2021-04-24 14:31] LABS: COVID-19 PCR Negative (Negative)
== END 2021-04-24 01:23 | disposition home or self-care (01) ==
PROVIDERS: PCP Nurse Practitioner; Visit Provider Surgery
DX: Z20.822 Contact with and (suspected) exposure to COVID-19 (principal)
CPT/HCPCS: 87635

== ENCOUNTER 2021-04-26 08:09 | Day surgery (SDC) | payer BC, SELFPAY ==
--- NOTE | 2021-04-26 06:23 | W.ANESPRE ---
General Info Date of Service Date Performed: 04/26/21 Height: 5 ft 2 in Weight: 61.292 kg Body Mass Index (BMI): 24.7 Surgical Procedure: Operation Date: 04/26/21 09:05 Proposed Procedure Side Surgeon papo Quiñonez, DO Meds Allergies and Home Medications Allergies Allergy/AdvReac Type Severity Reaction Status Date / Time animal dander Allergy Severe Wheezing, Unverified 04/26/21 08:22 SOB ampicillin Allergy Unknown unknown Unverified 04/26/21 08:25 reaction cyclobenzaprine AdvReac Severe Tremors, Unverified 04/26/21 08:25 per pt -BR Home Medication Medication Instructions Recorded cholecalciferol (vitamin D3) 50 2,000 unit PO DAILY 06/15/17 mcg (2,000 unit) capsule (Vitamin D3) omega-3 fatty acids-fish oil 340 1 ea PO DAILY 06/15/17 mg-1,000 mg capsule (Fish Oil) levothyroxine 50 mcg tablet 50 mcg PO DAILY #90 tab 02/27/21 albuterol sulfate 90 mcg/actuation 1 - 2 puff INHALATION Q6H PRN PRN 04/01/21 aerosol inhaler (ProAir HFA) #8.5 g beclomethasone dipropionate 80 1 inh IH BID PRN #10.6 g 04/01/21 mcg/actuation HFA breath activated aerosol (Qvar RediHaler) bisacodyl 5 mg tablet,delayed 5 mg PO ONCE #4 tab 04/15/21 release (Dulcolax (bisacodyl)) ginkgo biloba 40 mg tablet 40 mg PO TID 04/15/21 polyethylene glycol 3350 17 238 g PO ONCE #238 g 04/15/21 gram/dose oral powder Current Visit Medications: Current Medications Generic Name Dose Route Start Last Admin Trade Name Freq PRN Reason Stop Dose Admin Hyoscyamine Sulfate 0.125 mg 04/25/21 09:59 Hyoscyamine 0.125 Mg Sl/Oral/Chew SL DIRECTED PRN Ringer's Solution 1,000 mls @ 80 mls/hr 04/26/21 06:00 IV 05/23/21 23:59 INFUSION AMARILYS IV Miscellaneous Supplies 1 each 04/26/21 06:00 Iv Access IV 05/23/21 23:59 DIRECTED AMARILYS Ondansetron HCl 4 mg 04/25/21 09:59 Ondansetron 4 Mg/2 Ml Vial IVP Q4H PRN PRN Nausea / Vomiting Sodium Chloride 0 ml 04/26/21 06:00 Normal Saline Flush 10 Ml Syr IV 05/23/21 23:59 PRN PRN Sodium Chloride 0 ml 04/26/21 06:00 Normal Saline 10 Ml Vial IJ 05/23/21 23:59 DIRECTED PRN Sterile Water 0 ml 04/26/21 06:00 Water,Injection,Sterile 10 Ml Vial IJ 05/23/21 23:59 DIRECTED PRN PFSH Active Problems Active Problems: Problem Status Onset Code 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 confirmed by dentist Surgical History Surgical History Cervical Conization/LEEP 2006 Cervical Procedure Cryo 1987. LEEP 2006. section 1996 History of surgery on right wrist Nasal septoplasty (12/19/15) Status post LEEP (loop electrosurgical excision procedure) of cervix Tobacco Smoking/Tobacco Use Status: Never Passive smoking exposure: Yes Second hand exposure: No Alcohol Alcohol Intake: current Alcohol intake frequency: a few times a month Alcohol type: wine and hard liquor Details: 2-4 x month Substance Use Substance use: Never Substance use type: does not use Prental History History 1 Para Hx # Term Pregnancies 1 Multiple births Hx # Pregnancies Ectopic pregnancies AB induced Hx Number of Living Children AB spontaneous Vital Signs and Lab Results Vital Signs Most Recent Vital Signs in EMR: Temp Pulse Resp BP Pulse Ox 36.5 C 77 18 146/88 H 98 04/26/21 08:27 04/26/21 08:27 04/26/21 08:27 04/26/21 08:27 04/26/21 08:27 Lab Results Blood Type / Crossmatch: No Data to Display Complete Blood Count: No Data to Display Complete Metabolic Panel: No Data to Display Liver Function Panel: No Data to Display Coagulation Panel: No Data to Display Cardiac Panel: No Data to Display Arterial Blood Gas: No Data to Display Venous Blood Gas: No Data to Display Pancreas Panel: No Data to Display Thyroid Panel: No Data to Display Infectious Disease: Coronavirus (COVID-19)(PCR) Negative (Negative) 04/24/21 08:41 04/24/21 Coronavirus 2019 Source Nasal/Nares 04/24/21 08:41 04/24/21 Blood Cultures: No Data to Display Toxicology Panel: No Data to Display Imaging and Studies Imaging and Studies Study information below may be from another EMR and interpreted by another provider. Please see original notes in EMR for more complete details. EKG Summary: 2020: nsr. Anesthesia Assessment and Plan Anesthesia History Personal History: No History of Anesthesia Complications Family History: No Family History of Anesthesia Complications Exercise Tolerance Exercise Tolerance: Metabolic Equivalents>4 Pertinent Negatives Pertinent Negatives: No Symptoms of GERD, No Major Cardiovascular Symptoms or Complaints, No Major Pulmonary Symptoms or Complaints and No History of CVA/TIA Cardiac & Pulmonary Exam Cardiac Exam: Normal S1/S2 Heart Sounds Pulmonary Exam: Clear Bilateral Breath Sounds Implantable Cardiac Device Does patient have a Pacemaker or an ICD?: No Airway Exam Known Difficult Airway: No Mallampati Class: 2 Mouth Opening: Normal (> 3cm) Thyromental Distance: Greater than 3 cm Neck Range of Motion: Full ROM Neck Circumference: Normal Teeth Condition: Normal Dentition and Loose or Chipped (Cracked upper left molar) ASA Classification ASA Score: ASA 2 Emergency Case?: No NPO Status NPO Status: NPO Clears >2 hours, Solids >8 hours Anesthesia Plan Resuscitation Status: Full Code Anesthesia Technique: General Anesthesia Airway Planned: Natural Airway Monitors Used: Standard Monitors Preoperative Comments:: 55 yo female with history of tubular adenoma for colo. Sig PMHx: asthma (albuterol, beclomethasone), s/p septoplasty, hypothyroid (on replacement), never smoker, occ EtOH.
[2021-04-26 08:27] VITALS: BP 146/88; PULSE 77; RESP 18; TEMP 36.5; O2SAT 98
[2021-04-26] MEDS: Lactated Ringers 1,000 ML 80 ML IV (08:52)
--- NOTE | 2021-04-26 09:10 | W.PM.OP ---
Date of service: 04/26/21 Time of Service: 10:00 Operative Note Operative Note DATE OF PROCEDURE: 04/26/21 PRE-OP DIAGNOSIS: A. polyps POST-OP DIAGNOSIS: other (normal/ext hem) SURGEON: Aleisha Quiñonez ANESTHESIA TYPE: General:No Airway Refer to Anesthesia Record ESTIMATED BLOOD LOSS: 0 PATHOLOGY: none sent COMPLICATIONS: None Patient was transported to: same day Patient's condition: stable Procedure Description: After informed consent was obtained the patient was taken to the procedure room and placed in a left decubitous position. Monitors were applied and a time out was done. The patients name, date of , procedure, allergies to medications and metal in their body was reviewed. The patient was then sedated. Once sedated and comfortable a rectal exam was done. External exam: x1 small ext hemorrhoidal tag. Internal exam revealed a normal sphincter tone and no palpable masses. The scope was then introduced and retrofelexed. No internal hemorrhoids were identified. The scope was then advanced to the cecum w/out difficulty. The TI and appendiceal orifice were identified. The prep was BBPS- 3 in all quadrants (9). The scope was then slowly retracted over 8minutes back into the rectum. There is some mild irritation in the cecum. This is most likely just from the prep. A biopsy was taken in this area. there are no polyps, AVMs, or diverticula visualized today. The scope was removed and the patient was woken up and taken back to Same day surgery in stable condition. The patient tolerated the procedure well and there were no immediate complications. Follow up: The patient should follow up in 7 years unless they develop changes in bowel habits or other new gastrointestinal complaints.
[2021-04-26 09:17] VITALS: BMI 24.7
--- NOTE | 2021-04-26 09:35 | BOWEL_PTH ---
PATIENT: Farzaneh Gutierrez LOC: [facility] U#:[id number] AGE/SX: 55/F ROOM: RE04/26/[address]: Aleisha Quiñonez : 1965 BED: DIS: 04/26/2021 SPEC #: [id number] RECD: 04/26/21 12:31 STATUS: MARLEN RE #: [id number] TESFAYE: 04/26/21 09:[address]: Aleisha Quiñonez DEPT: Surgical Specimen RECD BY: Anita Parra ENTERED: 04/26/21 12:32 SP TYPE: Bowel OTHR DR: Bere Westbrook, PhD COUNSELOR AIDE Tissues: 1 - BIOPSY BOWEL Procedures: GROSS AND MICRO LEVEL 4 Comments: [id number]
--- NOTE | 2021-04-26 09:42 | PDOC.DSDIS_ITS ---
Discharge Plan Disposition Patient Disposition: HOME Condition: Good Discharge Details Reason For Visit: colon scope Attending Provider: Aleisha Quiñonez Primary Care Provider: Bere Westbrook Home Meds and New Rx's Prescriptions: No Action ginkgo biloba 40 mg tablet 40 mg PO TID 0RF Rx Instructions: give with meal/snack polyethylene glycol 3350 17 gram/dose powder 238 g PO ONCE Qty: 238 0RF Rx Instructions: take per colonoscopy instructions bisacodyl [Dulcolax (bisacodyl)] 5 mg tablet,delayed release (DR/EC) 5 mg PO ONCE Qty: 4 0RF Rx Instructions: take per colonoscopy instructions Fish Oil 1 EACH capsule 1 ea PO DAILY 0RF cholecalciferol (vitamin D3) [Vitamin D3] 2,000 UNIT capsule 2,000 unit PO DAILY 0RF Label Comments: 06/15/17 she is not sure of the units. [facility] levothyroxine 50 mcg tablet 50 mcg PO DAILY Qty: 90 4RF albuterol sulfate [ProAir HFA] 90 mcg/actuation HFA aerosol inhaler 1 - 2 puff Inhalation Q6H PRN PRN (Reason: bronchospasm) Qty: 8.5 4RF Qvar RediHaler 80 mcg/actuation HFA aerosol breath activated 1 inh IH BID PRN (Reason: bronchospasm) Qty: 10.6 4RF Discharge Instructions Additional Instructions: DSU Colonoscopy Post- Op Instructions Instructions for Everyone who is given Anesthesia: For your safety, please do the following for the next twenty-four (24) hours: *Do Not operate a motor vehicle (car, truck, motorcycle, etc.) *Do Not drink alcoholic beverages or use any recreational drugs for the first 24 hours or while taking pain medications. The medications in your body may have a reaction that can be dangerous. *Do Not make any important decisions or sign any important papers. Findings:normal Follow up: repeat in 7 yrs 1. No lifting over 20 pounds or strenuous activity for the first 24 hours after your procedure. After 24 hours there are no restrictions on your activity but you may feel fatigued for a few days. 2. After you arrive home you may have a light meal and return to your normal diet as you can tolerate it without feeling sick to your stomach. 3. You may have a bloated, gaseous feeling in your belly (abdomen) after a colonoscopy. Passing gas and belching will help. Walking or lying down on your left side with your knees flexed may relieve the discomfort. Call the office at [phone] (Office) or [phone] (Hospital) right away if you notice any of the following: a.Vomiting of blood or ?coffee ground stools?. b.Rectal bleeding 1Tbsp, blood clots or continuous bleeding. c.Severe belly (abdominal) pain. d.A hard distended belly (abdomen) and an inability to pass gas. 4. Please don?t expect to have a normal BM (bowel movement) for 2-3 days after your procedure. 5. If there are questions regarding the findings of your procedure, please contact your doctor 6. If you are unable to contact your doctor with a problem, contact the hospital at [phone]. 7. Continue all your regular medications unless directed otherwise. I understand the above instructions and have no questions. Signature of Patient or Adult Escort Name of Responsible Adult Escort Signature of Nurse Date/Time Activity:: see above Diet:: see above Discharge Orders Discharge Orders: Discharge Order (Routine); Ordered 04/25/21 Ordered By: Aleisha Quiñonez
[2021-04-26 09:43] VITALS: BP 119/82; PULSE 74; RESP 16; TEMP 36; O2SAT 98
--- NOTE | 2021-04-26 09:53 | W.ANESPOSTOP ---
Postoperative Evaluation Date, Time and Location Date Performed: 04/26/21 Time Performed: 09:53 Patient Location: Day Surgery Unit Vital Signs Most Recent Imported Vital Signs: Most Recent Vital Signs Temp Pulse Resp BP Pulse Ox 36 C L 74 16 119/82 98 04/26/21 09:43 04/26/21 09:43 04/26/21 09:43 04/26/21 09:43 04/26/21 09:43 Pain Score Most Recent Pain Score: Most Recent Pain Score Pain Level 0 04/26/21 09:43 Assessment Mental Status: Awake (Alert & Oriented to Patient Baseline) Airway and Respiratory Function: Patent airway with normal (patient baseline) respiratory exam Cardiovascular Function: Hemodynamically Stable Hydration Status: Adequately Hydrated Nausea & Vomiting: No Nausea or Vomiting Pain: Pt. Denies Any Pain Peripheral Nerve Block: Patient did not receive a nerve block
[2021-04-26 10:15] VITALS: BP 148/90; PULSE 69; RESP 18; TEMP 36.3; O2SAT 98
== END 2021-04-26 10:24 | disposition home or self-care (01) ==
PROVIDERS: PCP Nurse Practitioner; Visit Provider Surgery
PROC: 0DJD8ZZ Inspection of Lower Intestinal Tract, Via Natural or Artificial Opening Endoscopic (ICD-10-PCS; CPT 45378; principal; 2021-04-26 09:00)
DX: Z12.11 Encounter for screening for malignant neoplasm of colon (principal); K63.89 Other specified diseases of intestine; Z86.010 Personal history of colon polyps; K64.4 Residual hemorrhoidal skin tags
CPT/HCPCS: 45380; 88305; J2001

== ENCOUNTER → 2021-09-30 16:10 | Outpatient (CLI) | payer BC, SELFPAY ==
--- NOTE | 2021-09-30 13:15 | DI.RAD_ITS ---
Exam(s) XR SACRUM COCCYX EXAM: XR SACRUM COCCYX CLINICAL HISTORY: r/o fx, COCCYX PAIN, M53.3. TECHNIQUE: 2D digital imaging was performed. COMPARISON: No exams were available for comparison FINDINGS: 3 views There is subtle irregularity the lower anterior cortex of the proximal segment of the coccyx. This i s probably a fracture, the trauma history here. No sacral fractures identified. SI joints unremarka ble. Sclerotic density in the left femoral head is probably benign bone island. IMPRESSION: DATA REPOSITORY: RADIATION DOSE DELIVERED:
== END ==
PROVIDERS: PCP Nurse Practitioner; Visit Provider Nurse Practitioner Family
DX: M53.3 Sacrococcygeal disorders, not elsewhere classified (principal)
CPT/HCPCS: 72220

== ENCOUNTER 2022-05-07 02:51 | Outpatient (CLI) | payer BC, SELFPAY ==
[2022-05-07 14:52] LABS: ALT 40 U/L (14-59); AST 41 U/L (15-37); Albumin 3.9 g/dL (3.4-5.0); Alkaline Phosphatase 85 U/L (46-116); Anion Gap 9.6 mmol/L (3-11); BUN 25 mg/dL (7-18); Bilirubin, Total 0.3 mg/dL (0.2-1.0); CO2 27.4 mmol/L (21.0-32.0); CREATININE 1.2 mg/dL (0.55-1.02); Calcium 9.1 mg/dL (8.5-10.1); Calculated LDL 113 mg/dL (<100); Chloride 104 mmol/L (98-107); Cholesterol 255 mg/dL (<200); Estimated GFR 53.13 (mL/min/1.73m2); Glucose 93 mg/dL (74-106); HDL Cholesterol 105 mg/dL (40-60); Sodium 141 mmol/L (136-145); TSH (W/Ref FT4) 2.11 uIU/mL (0.36-3.74); Total Protein 7.9 g/dL (6.4-8.2); Triglyceride 187 mg/dL (<150)
== END 2022-05-07 02:52 | disposition home or self-care (01) ==
PROVIDERS: PCP Family Medicine; Visit Provider Family Medicine
DX: Z00.00 Encounter for general adult medical examination without abnormal findings (principal); E03.9 Hypothyroidism, unspecified; Z13.6 Encounter for screening for cardiovascular disorders; Z83.49 Family history of other endocrine, nutritional and metabolic diseases; R03.0 Elevated blood-pressure reading, without diagnosis of hypertension
CPT/HCPCS: 80053; 80061; 84443

== ENCOUNTER → 2022-10-16 02:50 | Outpatient (CLI) | payer BC, SELFPAY ==
--- NOTE | 2022-10-16 08:30 | DI.MAMMO_ITS ---
Exam(s) MAMMO SCREENING EXAM: MAMMO SCREENING CLINICAL HISTORY: screening,z12.39. TECHNIQUE: Bilateral full field digital CC and MLO mammographic images were obtained with 3D tomosyn thesis and utilizing computer aided detection (CAD). COMPARISON: Prior mammograms were reviewed. FINDINGS: There has been no significant change in the appearance and distribution of the fibroglandular tissue. Asymmetric densities anteriorly right remain unchanged from prior mammograms. There are no new spiculated masses nor malignant appearing microcalcification groups. There is no significant architectural distortion nor skin thickening-retraction. IMPRESSION: No radiographic evidence of malignancy. Stable benign-appearing findings BI-RADS Category 2 - Benign Findings Breast Density - Category C - Heterogeneously dense Breast density Category C or D implies that the patient has dense breast tissue. Dense breast tissue can make it harder to find cancer on a mammogram. Dense breast tissue is also associated with an incr eased risk of breast cancer. This information about the result of the mammogram report was provided to the patient to raise their awareness. Use this report when you speak with the patient about their risks for breast cancer, which includes their family history. At that time, you may recommend additional screening tests (Ultrasoun d or MRI) as these tests may add significant information. A negative radiographic report should not delay biopsy if a dominant or clinically suspicious mass is present. Up to ten percent of cancers are not identified on mammography. A negative report may reinforce clinical impression. Adenosis and dense breasts may obscure an underlying neoplasm. False positive reports average 6 to 10%. Patient will receive a letter notifying them of these results.
--- NOTE | 2022-10-16 08:30 | DI.DEXA_ITS ---
Exam(s) XR DEXA BONE DENSITY W/WO SABRINA EXAM: XR DEXA BONE DENSITY W/WO SABRINA CLINICAL HISTORY: h/o osteopenia, fractures,screening for osteoporosis in postmenopausal woma TECHNIQUE: Routine DEXA evaluation of the lumbar spine, hip, or forearm. COMPARISON: Prior DEXA scan May 2015. FINDINGS: Performed on a Holo[employer] unit. Lateral image: No compression fracture evident. Lumbar Spine total T-score: -2.4. Prior reading in 2016 was -1.6 Hip total T-score:-2.1. Prior reading in 2016 was -1.2 Independent reading at the level of the femoral neck yields T-score of -2.8 Forearm total T-score: -1.4 IMPRESSION: Bone mineral density measures in the osteopenia bordering on osteoporosis range. Fracture risk is mod erate-high. Note: Any spine fracture indicates 5x risk for subsequent spine fracture and 2x risk for subsequent h ip fracture. World Health Organization criteria for BMD interpretation classify patients: Normal...... T- Score at or above -1.0 Osteopenic... T- Score between -1.0 and -2.5 Osteoporosis... T-Score at or below -2.5
== END ==
PROVIDERS: PCP Family Medicine; Visit Provider Family Medicine
DX: Z12.31 Encounter for screening mammogram for malignant neoplasm of breast (principal); M81.0 Age-related osteoporosis without current pathological fracture; Z78.0 Asymptomatic menopausal state; Z13.820 Encounter for screening for osteoporosis
CPT/HCPCS: 77063; 77067; 77080

== ENCOUNTER 2022-10-16 04:06 | Outpatient (CLI) | payer BC, SELFPAY ==
[2022-10-16 14:49] LABS: Anion Gap 5.1 mmol/L (3-11); BUN 19 mg/dL (7-18); CO2 30.9 mmol/L (21.0-32.0); CREATININE 0.8 mg/dL (0.55-1.02); Calcium 8.6 mg/dL (8.5-10.1); Chloride 97 mmol/L (98-107); Estimated GFR 85.89 (mL/min/1.73m2); Glucose 90 mg/dL (74-106); Potassium 3.6 mmol/L (3.5-5.1); Sodium 133 mmol/L (136-145)
== END 2022-10-16 04:07 | disposition home or self-care (01) ==
LOC: LBO 04:06
PROVIDERS: PCP Family Medicine; Visit Provider Family Medicine
DX: I10 Essential (primary) hypertension (principal)
CPT/HCPCS: 36415; 80048

== ENCOUNTER 2023-07-10 01:46 | Outpatient (CLI) | payer BC, SELFPAY ==
[2023-07-10 12:42] LABS: TSH (W/Ref FT4) 2.76 uIU/mL (0.36-3.74)
== END 2023-07-10 01:47 | disposition home or self-care (01) ==
LOC: LOS 01:46
PROVIDERS: PCP Family Medicine; Visit Provider Family Medicine
DX: E03.9 Hypothyroidism, unspecified (principal)
CPT/HCPCS: 36415; 84443

== ENCOUNTER 2024-10-03 11:56 | Outpatient (REF) | payer BC, SELFPAY ==
--- NOTE | 2024-10-03 11:00 | PAPFT_PTH ---
PATIENT: Farzaneh Gutierrez LOC: [facility] U#:[id number] AGE/SX: 59/F ROOM: RE10/03/[address]: Ladonna Levy MD, DC : 1965 BED: DIS: 10/03/2024 SPEC #: [id number] RECD: 10/03/24 13:14 STATUS: MARLEN REAjit #: [id number] TESFAYE: 10/03/24 11:[address]: Ladonna Levy DEPT: [facility] Cytology RECD BY: Anita Parra Tissues: 1 - CX/ENDOCX FOR PAP SMEARS Procedures: PAP THIN PREP/[facility] Screening HPV DNA PROBE Comments: [id number] (HPV 16 & 18/45)
== END 2024-10-03 11:57 | disposition home or self-care (01) ==
LOC: LBN 11:56
PROVIDERS: PCP Family Medicine; Visit Provider Family Medicine
DX: N76.0 Acute vaginitis (principal); Z12.4 Encounter for screening for malignant neoplasm of cervix
CPT/HCPCS: 88142; 87480; 87510; 87624; 87660

== ENCOUNTER 2024-10-03 13:36 | Outpatient (CLI) | payer BC, SELFPAY ==
[2024-10-03 13:55] LABS: ALT 35 U/L (14-59); AST 33 U/L (15-37); Albumin 4.4 g/dL (3.4-5.0); Alkaline Phosphatase 106 U/L (46-116); Anion Gap 12.6 mmol/L (3-11); BUN 21 mg/dL (7-18); Bilirubin, Total 0.4 mg/dL (0.2-1.0); CO2 26.4 mmol/L (21.0-32.0); Calcium 9.6 mg/dL (8.5-10.1); Calculated LDL 103 mg/dL (<100); Chloride 103 mmol/L (98-107); Cholesterol 208 mg/dL (<200); Estimated GFR 73.64 (mL/min/1.73m2); Glucose 92 mg/dL (74-106); HDL Cholesterol 88 mg/dL (>or=50); Potassium 4.0 mmol/L (3.5-5.1); Sodium 142 mmol/L (136-145); TSH (W/Ref FT4) 1.79 uIU/mL (0.36-3.74); Total Protein 8.2 g/dL (6.4-8.2); Triglyceride 86 mg/dL (<150)
[2024-10-05 15:53] LABS: Hepatitis C Ab w Rflx HCV PCR Negative (Negative)
== END 2024-10-03 13:37 | disposition home or self-care (01) ==
LOC: LBO 13:42
PROVIDERS: PCP Family Medicine; Visit Provider Family Medicine
DX: E03.9 Hypothyroidism, unspecified (principal); Z00.00 Encounter for general adult medical examination without abnormal findings; Z11.59 Encounter for screening for other viral diseases; I10 Essential (primary) hypertension
CPT/HCPCS: 36415; 80053; 80061; 86803; 84443

== ENCOUNTER → 2025-02-13 00:54 | Outpatient (CLI) | payer BC, SELFPAY ==
--- NOTE | 2025-02-13 07:00 | DI.MAMMO_ITS ---
Exam(s) MAMMO SCREENING EXAM: MAMMO SCREENING CLINICAL HISTORY: screening,z12.39 TECHNIQUE: Bilateral full field digital CC and MLO mammographic images were obtained with 3D tomosynthesis and utilizing computer aided detection (CAD). COMPARISON: Comparison is made with prior examinations. FINDINGS: Masses/Architectural Distortion: No suspicious masses or areas of architectural distortion are present. Microcalcifications: No suspicious pleomorphic-type are seen. Skin Thickening/Nipple Retraction: None. IMPRESSION: 1. No significant interval change with no specific features of malignancy noted. 2. Unless there is more urgent need, screening mammography is recommended, as per [place] [employer] guidelines. BI-RADS Category 1 - Negative Breast Density - Category C - The breast are heterogeneously dense, which may obscure small masses. Breast density Category C or D implies that the patient has dense breast tissue. Dense breast tissue can make it harder to find cancer on a mammogram. Dense breast tissue is also associated with an increased risk of breast cancer. This information about the result of the mammogram report was provided to the patient to raise their awareness. Use this report when you speak with the patient about their risks for breast cancer, which includes their family history. At that time, you may recommend additional screening tests (Ultrasound or MRI) as these tests may add significant information. A negative radiographic report should not delay biopsy if a dominant or clinically suspicious mass is present. Up to ten percent of cancers are not identified on mammography. A negative report may reinforce clinical impression. Adenosis and dense breasts may obscure an underlying neoplasm. False positive reports average 6 to 10%. Patient will receive a letter notifying them of these results.
== END ==
LOC: DI 00:54
PROVIDERS: PCP Family Medicine; Visit Provider Family Medicine
DX: Z12.31 Encounter for screening mammogram for malignant neoplasm of breast (principal)
CPT/HCPCS: 77063; 77067